=== PATIENT | female | born 1995 | race Caucasian/White ===

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

== ENCOUNTER 2017-09-01 09:31 | Emergency (ER) | payer BC ==
[2017-09-01 09:45] VITALS: BP 115/72
--- NOTE | 2017-09-01 10:25 | UC ---
Respiratory Complaint HPI - HPI Summary HPI Summary: Patient was healthy 22-year-old female presenting to the with chief complaint of sinus congestion, sore throat, chest congestion, dysphagia, short of breath and fevers highest at 102 yesterday. Symptoms began 2 days ago and it remained constant. She was seen at [facility] yesterday and chest x-ray was negative for any acute findings. She has had a history of tonsillectomy and mono 2 years ago. She denies any extreme fatigue. She has been taking Tylenol with relief for her fevers, but did not take any prior to arrival. Temp on arrival is 99.2 and she is tachycardia 109. She denies any other health history, takes no medications. - History of Current Complaint Hx Obtained From: Patient Hx Last Menstrual Period: 08/08/16 ?: No Onset/Duration: Sudden Onset Timing: Constant Severity Initially: Mild Severity Currently: Mild Pain Intensity: 4 Pain Scale Used: 0-10 Numeric Character: Cough: Productive Aggravating Factors: Deep Breaths Associated Signs And Symptoms: Positive: Dyspnea, Fever, URI, Nasal Congestion, Sinus Discomfort. Negative: Pleuritic Chest Pain, Wheezing, Hemoptysis, Dizziness, Calf Pain, Calf Swelling, Edema, Hoarseness - Risk Factors Pulmonary Embolism Risk Factors: Negative Cardiac Risk Factors: Negative Pseudomonas Risk Factors: Negative Tuberculosis Risk Factors: Negative <Yvette Atkins - Last Filed: 09/01/17 10:20> <Roxanna Guerra - Last Filed: 09/01/17 11:30> - History of Current Complaint Chief Complaint: UCRespiratory Stated Complaint: FEVER, SORE THROAT Time Seen by Provider: 09/01/17 09:53 - Allergies/Home Medications Allergies/Adverse Reactions: Allergies Allergy/AdvReac Type Severity Reaction Status Date / Time No Known Allergies Allergy Verified 09/01/17 09:44 Home Medications: Home Medications Nitrofurantoin Macrocrystal [Nitrofurantoin] 100 mg PO 09/01/17 [History] PMH/Surg Hx/FS Hx/Imm Hx Previously Healthy: Yes - Surgical History Surgical History: Yes Surgery Procedure, Year, and Place: t&a 09/2016 - Family History Known Family History: Positive: None Negative: Blood Disorder - Social History Occupation: Unemployed, Student Lives: With Family Alcohol Use: Weekly Substance Use Type: None Smoking Status (MU): Never Smoked Tobacco <Yvette Atkins - Last Filed: 09/01/17 10:20> Review of Systems Constitutional: Negative Skin: Negative ENT: Sore Throat, Nasal Discharge, Sinus Congestion, Sinus Pain/Tenderness Respiratory: Negative Cardiovascular: Negative Gastrointestinal: Abdominal Pain - LUQ Motor: Negative Neurovascular: Negative Musculoskeletal: Negative Neurological: Negative Is Patient Immunocompromised?: No All Other Systems Reviewed And Are Negative: Yes <Yvette Atkins - Last Filed: 09/01/17 10:20> Physical Exam Triage Information Reviewed: Yes Appearance: Well-Appearing, Well-Nourished Vital Signs: Initial Vital Signs Temp 99.2 F 09/01/17 09:41 Pulse 109 09/01/17 09:41 Resp 18 09/01/17 09:41 BP 115/72 09/01/17 09:41 Pulse Ox 97 09/01/17 09:41 Vital Signs Reviewed: Yes Eye Exam: Normal Eyes: Positive: Conjunctiva Clear ENT: Positive: Pharyngeal erythema, Nasal congestion, Nasal drainage, TMs normal , Sinus tenderness, Uvula midline. Negative: TM bulging, TM dull, TM red, Tonsillar swelling, Tonsillar exudate, Trismus, Muffled voice, Hoarse voice, Dental tenderness Neck exam: Normal Neck: Positive: Supple, No Lymphadenopathy Respiratory Exam: Normal Respiratory: Positive: Lungs clear Abdomen Description: Positive: No Organomegaly, Soft, Other: - He is Musculoskeletal Exam: Normal Musculoskeletal: Positive: Strength Intact Neurological Exam: Normal Neurological: Positive: Alert Psychological: Positive: Normal Response To Family Skin Exam: Normal <Yvette Atkins - Last Filed: 09/01/17 10:20> Vital Signs: Initial Vital Signs Temp 99.2 F 09/01/17 09:41 Pulse 109 09/01/17 09:41 Resp 18 09/01/17 09:41 BP 115/72 09/01/17 09:41 Pulse Ox 97 09/01/17 09:41 <Roxanna Guerra - Last Filed: 09/01/17 11:30> UC Diagnostic Evaluation - Laboratory O2 Sat by Pulse Oximetry: 97 <Yvette Atkins - Last Filed: 09/01/17 10:20> Respiratory Course/Dx - Course Course Of Treatment: During the course of treatment, the patient's evaluated for acute sinusitis versus congestion versus other etiology. She's been seen at [facility] with a negative chest x-ray. Today on arrival she is diffusely tender throughout her maxillary sinuses. Pharyngeal erythema and noted tonsillectomy. Does not appear to be enlarged although patient is having some left upper quadrant tenderness. I discussed obtaining a Monospot however this will not change her course of treatment she declines this at this time. She is given Augmentin for acute sinusitis and is given Flonase. She is to intermittently take Tylenol and ibuprofen for any fevers chills understands the return given to her. - Differential Dx/Diagnosis Provider Diagnoses: Rhinosinusitis <Yvette Atkins - Last Filed: 09/01/17 10:20> Discharge - Sign-Out/Discharge Documenting (check all that apply): Discharge/Admit/Transfer - Billing Disposition and Condition Condition: STABLE Disposition: HOME <Yvette Atkins - Last Filed: 09/01/17 10:20> - Billing Disposition and Condition Condition: STABLE Disposition: HOME <Roxanna Guerra - Last Filed: 09/01/17 11:30> - Discharge Plan Condition: Stable Disposition: HOME Prescriptions: Amoxicillin/Clavulanate TAB* [Augmentin TAB 875*] 875 mg PO BID #14 tab Fluticasone NASAL SPRAY 50MCG* [Flonase NASAL SPRAY 50MCG*] 2 spray BOTH NARES DAILY #1 btl Patient Education Materials: Pharyngitis (ED), Rhinosinusitis (ED) Forms: *School Release Referrals: [facility] - Reynaldo PRUITT [Primary Care Provider] - Additional Instructions: Augmentin twice daily x 7 days Flonase as needed for nasal congestion Tylenol and ibuprofen, use intermittently for fevers If you develop fevers despite the medication, return to the UC If you develop any worsening or changing symptoms, return to the UC Attestation Statement User Type: Provider - I was available for consult. This patient was seen by the JULISA. The patient was not presented to, seen by, or examined by me. -Brant <Roxanna Guerra - Last Filed: 09/01/17 11:30>
== END 2017-09-01 10:34 | disposition home or self-care (01) ==
LOC: UCEAST 09:31
DX: J32.9 Chronic sinusitis, unspecified (principal); R06.00 Dyspnea, unspecified; R50.9 Fever, unspecified; R10.12 Left upper quadrant pain
CPT/HCPCS: 87651; 99212; G0463

== ENCOUNTER 2017-09-02 22:51 | Emergency (ER) | payer OTHER, BC ==
--- NOTE | 2017-09-03 02:08 | ED ---
Respiratory - HPI Summary HPI Summary: Patient complains of fever, sinus congestion, productive cough, shallow breathing, sore throat, left upper quadrant pain 1.[address] [facility] initially with a negative chest x-ray. Seen In urgent care yesterday and diagnosed with pharyngitis, given Augmentin and Flonase. Patient comes to the ED tonight complaining of persistent fever despite taking Tylenol every 6 hours and concern for her "spleen pain" and concern she has mono. Patient states monotest has not been done at urgent care or [facility]. She states that she has been taking Augmentin. Denies worsening of symptoms, CALLE, neck stiffness , CP, N/V/D, abdominal, change in urine or BM. Medical history is tonsillectomy. Urgent care note states monotest was not done as it would not change course of treatment - History of Current Complaint Chief Complaint: EDFever Stated Complaint: FEVER/FLANK PAIN Time Seen by Provider: 09/03/17 00:31 Hx Obtained From: Patient Onset/Duration: Gradual Onset Timing: Intermittent Episodes Lasting: Initial Severity: Mild Current Severity: Mild Pain Intensity: 4 Character: Cough (Productive) Sputum Amount: Moderate Sputum Color: Yellow, Green Associated Signs and Symptoms: Fever, SOB, Nasal Congestion - Allergy/Home Medications Allergies/Adverse Reactions: Allergies Allergy/AdvReac Type Severity Reaction Status Date / Time No Known Allergies Allergy Verified 09/01/17 09:44 PMH/Surg Hx/FS Hx/Imm Hx History: Reports: Other Problems/Disorders - frequent UTI--advised by Chaitanya to follow with urology - Surgical History Surgery Procedure, Year, and Place: t&a 09/2016 Infectious Disease History: No Infectious Disease History: Denies: Traveled Outside the [place] in Last 30 Days - Family History Known Family History: Positive: None Negative: Blood Disorder - Social History Alcohol Use: Weekly Substance Use Type: Reports: None Smoking Status (MU): Never Smoked Tobacco Review of Systems Positive: Fever Eyes: Negative Positive: Sore Throat, Nasal Discharge Cardiovascular: Negative Positive: Cough Positive: Abdominal Pain Genitourinary: Negative Musculoskeletal: Negative Skin: Negative Neurological: Negative Psychological: Normal All Other Systems Reviewed And Are Negative: Yes Physical Exam - Summary Physical Exam Summary: Abdomen nontender to palpation. No CVA tenderness Triage Information Reviewed: Yes Vital Signs On Initial Exam: Initial Vitals Temp Pulse Resp BP Pulse Ox 98.8 F 115 16 133/90 99 09/02/17 22:59 09/02/17 22:59 09/02/17 22:59 09/02/17 22:59 09/02/17 22:59 Vital Signs Reviewed: Yes Appearance: Positive: Well-Appearing Skin: Positive: Warm Head/Face: Positive: Normal Head/Face Inspection Eyes: Positive: Normal ENT: Positive: Pharyngeal erythema, Nasal congestion, TMs normal, Uvula midline. Negative: Tonsillar swelling, Tonsillar exudate, Trismus, Muffled voice, Hoarse voice, Sinus tenderness Neck: Positive: Supple Respiratory/Lung Sounds: Positive: Clear to Auscultation Cardiovascular: Positive: Normal Abdomen Description: Positive: Nontender Musculoskeletal: Positive: Normal Neurological: Positive: Normal Psychiatric: Positive: Normal AVPU Assessment: Alert - Amber Coma Scale Best Eye Response: 4 - Spontaneous Best Motor Response: 6 - Obeys Commands Best Verbal Response: 5 - Oriented Coma Scale Total: 15 Diagnostics - Vital Signs Vital Signs Temp Pulse Resp BP Pulse Ox 09/03/17 00:40 100.3 F 09/03/17 00:36 104 121/77 97 09/03/17 00:35 100 98 09/02/17 22:59 98.8 F 115 16 133/90 99 - Laboratory Lab Statement: Any lab studies that have been ordered have been reviewed, and results considered in the medical decision making process. Disposition - Course Course Of Treatment: With the past week and a half patient has had a negative chest x-ray, negative strep. Patient concern for persistent fever, denies worsening of symptoms since being seen in urgent care yesterday. We will have patient alternate ibuprofen and Tylenol every 3 hours instead of just Tylenol every 6 hours. Explained to patient doing a mono test would not change treatment. Also explained to her that if she was positive for mono recommendation would be to not engage in contact sports for the next 2 weeks. Advised her to continue taking Augmentin, but that this could also be a viral syndrome - Diagnoses Provider Diagnoses: Pharyngitis Discharge - Sign-Out/Discharge Documenting (check all that apply): Discharge/Admit/Transfer - Discharge Plan Condition: Stable Disposition: HOME Patient Education Materials: Pharyngitis (ED) Referrals: [facility] - Reynaldo PRUITT [Primary Care Provider] - Additional Instructions: Alternate ibuprofen 600 mg with Tylenol 600 mg every 3 hours. Continue taking antibiotics. Follow-up with primary care. Return to the ED for any new or worsening symptoms - Billing Disposition and Condition Condition: STABLE Disposition: HOME
[2017-09-03 04:34] VITALS: BP 123/74
== END 2017-09-03 02:10 | disposition home or self-care (01) ==
LOC: ED 22:51
DX: J02.9 Acute pharyngitis, unspecified (principal); R50.9 Fever, unspecified; R06.02 Shortness of breath; R09.81 Nasal congestion
CPT/HCPCS: 99282

== ENCOUNTER 2017-09-04 22:35 | Emergency (ER) | payer BC ==
[2017-09-04] MEDS ORDERED: diPHENhydraMINE PO* 25 MG PO ONE (23:08)
[2017-09-04] MEDS ORDERED: predniSONE TAB* 20 MG PO ONE (23:08)
--- NOTE | 2017-09-04 23:21 | ED ---
Allergic Reaction/Systemic - HPI Summary HPI Summary: 22-year-old female presents allergic reaction today. States she developed hives that are itchy this afternoon. She states she started azithromycin today. She also has been on Augmentin for the past three days. She was diagnosed with pharyngitis 3 days ago. States she has been sick for 2 weeks. She states she has a cough that is tarted with and now has had increasing sinus pressure. She denies any shortness breath or chest pain. She denies any history of asthma. She states she's been having intermittent fevers. She had abdominal pain that since resolved. No nausea. She states she has a headache. she does have a history of mono. She has taken zpack and augmentin before. - History of Current Complaint Chief Complaint: EDAllergicReaction Time Seen by Provider: 09/04/17 22:59 Hx Last Menstrual Period: 08/08/16 Pain Intensity: 0 - Allergies/Home Medications Allergies/Adverse Reactions: Allergies Allergy/AdvReac Type Severity Reaction Status Date / Time bee venom protein (honey bee) Allergy Anaphylatic Verified 09/04/17 22:45 Shock PMH/Surg Hx/FS Hx/Imm Hx Endocrine/Hematology History: Denies: Hx Anticoagulant Therapy Respiratory History: Denies: Hx Asthma History: Reports: Other Problems/Disorders - frequent UTI--advised by Chaitanya to follow with urology - Surgical History Surgery Procedure, Year, and Place: t&a 09/2016 Infectious Disease History: No Infectious Disease History: Denies: Traveled Outside the [place] in Last 30 Days - Family History Known Family History: Positive: None Negative: Blood Disorder - Social History Alcohol Use: Weekly Substance Use Type: Reports: None Smoking Status (MU): Never Smoked Tobacco Review of Systems Positive: Fever Positive: Sore Throat Negative: Chest Pain Positive: Cough. Negative: Shortness Of Breath Positive: Abdominal Pain - resolved. Negative: Vomiting, Nausea All Other Systems Reviewed And Are Negative: Yes Physical Exam Triage Information Reviewed: Yes Vital Signs On Initial Exam: Initial Vitals Temp Pulse Resp BP Pulse Ox 100 F 109 20 110/70 97 09/04/17 22:38 09/04/17 22:38 09/04/17 22:38 09/04/17 22:38 09/04/17 22:38 Vital Signs Reviewed: Yes Appearance: Positive: Well-Appearing Skin: Positive: Warm, Dry, Other - macules across arms and legs Head/Face: Positive: Normal Head/Face Inspection Eyes: Positive: Normal, EOMI, EMI, Conjunctiva Clear ENT: Positive: Pharyngeal erythema, Tonsillar swelling, Uvula midline, Other - soft palate symmetric. Negative: Tonsillar exudate Neck: Positive: Tenderness @ - cervical lymph nodes Respiratory/Lung Sounds: Positive: Clear to Auscultation, Breath Sounds Present Cardiovascular: Positive: Normal, RRR Abdomen Description: Positive: Nontender, Soft Bowel Sounds: Positive: Present Musculoskeletal: Positive: Normal Neurological: Positive: Normal Psychiatric: Positive: Normal Diagnostics - Vital Signs Vital Signs Temp Pulse Resp BP Pulse Ox 09/04/17 22:38 100 F 109 20 110/70 97 - Laboratory Lab Statement: Any lab studies that have been ordered have been reviewed, and results considered in the medical decision making process. Allergic Reaction Course/Dx - Course Course Of Treatment: 22-year-old female presents allergic reaction today. States she developed hives that are itchy this afternoon. She states she started azithromycin today. She also has been on Augmentin for the past three days. She was diagnosed with pharyngitis 3 days ago. States she has been sick for 2 weeks. She states she has a cough that is tarted with and now has had increasing sinus pressure. She denies any shortness breath or chest pain. She denies any history of asthma. She states she's been having intermittent fevers. She had abdominal pain that since resolved. No nausea. She states she has a headache. she does have a history of mono. on exam has macules across arms and legs. could be allergic vs reaction to mono with augmentin. monospot: neg. gave dose of benadryl and prednisone. discussed with patient since symptoms are more sinus and rash started after zpack will switch back to augmentin as give more sinusitis coverage. will have continue benadryl and steriod. told if develops any resp issues to stop medication. patient understand and agrees with plan. - Diagnoses Differential Diagnosis/HQI/PQRI: Positive: Local Allergic Reaction, Urticaria, Other - mono, viral syndrome Provider Diagnoses: Acute urticaria, Sinusitis Discharge - Sign-Out/Discharge Documenting (check all that apply): Discharge/Admit/Transfer - Discharge Plan Condition: Good Disposition: HOME Prescriptions: predniSONE TAB* [Deltasone TAB*] 50 mg PO DAILY #4 tab Patient Education Materials: Urticaria (ED) Referrals: [facility] - Reynaldo PRUITT [Primary Care Provider] - Additional Instructions: Take Benadryl every 6 hours Can apply cream with hydrocortisone to area for itchy Restart augmentin twice a day Take prednisone once a day take sudafed daily use saline up the nose take flonase two sprays each nostril daily Return to ED if develop shortness of breath, difficulty swallowing or any new or worsening symptoms - Billing Disposition and Condition Condition: GOOD Disposition: HOME
[2017-09-05 00:19] VITALS: BP 121/72
== END 2017-09-05 00:18 | disposition home or self-care (01) ==
LOC: ED 22:35
DX: L50.9 Urticaria, unspecified (principal); J01.90 Acute sinusitis, unspecified; T78.40XA Allergy, unspecified, initial encounter; R50.9 Fever, unspecified; J02.9 Acute pharyngitis, unspecified; R05 Cough
CPT/HCPCS: 36415; 86308; 99282; A9270-GY; J7512